=== PATIENT | male | born 1945 | race Caucasian/White ===

== ENCOUNTER → 2017-11-06 | Outpatient (CLI) | END | disposition home or self-care (01) ==

== ENCOUNTER → 2018-05-25 | Outpatient (CLI) | END | disposition home or self-care (01) ==

== ENCOUNTER → 2019-03-11 | Outpatient (CLI) | payer MEDICARE, OTHER ==
[~2019-03-11] MED LIST: LOSA100T3; METF500T24; VICES
--- NOTE | 2019-03-11 16:53 | CONS ---
Assessment/Plan Assessment/Plan Hospital Course (Demo Recall) 73-year-old male with acute pain to his right TKA times 1 day and chronic pain of his left knee secondary to osteoarthritis most significantly affecting his lateral compartment. In regards to his right total knee arthroplasty there is no signs of x-ray of fracture or loosening of the implant. X-rays look very good. His examination shows that the knee is stable. He is tender to palpation over the patella tendon which is likely tendinitis from the injury versus a small partial tear of the patella tendon. His left knee osteoarthritis is beginning to bother him again. Previous steroid injections were very successful. Patient would like another one. Plan: Rest and ice right knee. After 2 weeks of resting he will start physical therapy for strengthening and to optimize knee mechanics. Steroid injection left knee Follow-up 6 weeks to reevaluate right knee patella tendinitis. Assessment/Plan (Daily) Left knee steroid injection procedure: Risks and benefits of steroid injection reviewed with patient. The risks include infection, failure, pain, swelling, nerve/tendon/ligament damage. The patient verbalized understanding and verbal consent was obtained prior to procedure. The left knee was prepped in a sterile fashion with alcohol and betadine the site of injection was confirmed. Lateral approach was used. The skin and capsule was anesthetized with 3mL 1% lidocaine. The left knee was injected with 2mL 1% lidocaine, 2mL 0.25% bupivacaine, 40mg Depo-Medrol. Injection flowed freely. Good hemostasis was achieved and no complications noted. The patient tolerated the procedure well. Limit activity and ice for 24-48 hours Consultation Date/Type/Reason Admit Date/Time Date of Consultation: Mar 11, 2019 Reason for Consultation Acute right TKA pain and chronic left knee pain Date/Time of Note DATE: 03/11/19 TIME: 16:35 Hx of Present Illness This is a 73-year-old male previous patient of Dr. Santiago. 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 He had no complaints or any issues with his right total knee until last night. His left knee pain has been going on for several years. He has had multiple steroid injections with much success. Last steroid injection was May 2018 and it was helping until this past month. His pain on his right TKA began last night when he was walking to the bathroom and his knee buckled. He did not fall he did catch himself. He now has significant anterior knee pain rated 10/10 and is sharp. The pain is exacerbated with walking however rising from a seated position is most painful. Denies any weakness. Denies any numbness and tingling. Denies any swelling to the right total knee. Terms of the left knee the left knee pain is on the lateral aspect and is rated 5/10 and is sharp. Denies any numbness and tingling in left lower extremity. He is walking tolerance was 2-3 miles prior to last night. Now he has severe pain and is using a cane and can even walk 1 block. Patient denies fever, chills, shortness of breath, chest pain, nausea/vomiting, constipation, diarrhea, numbness, and tingling. Past Medical History Hypertension Diabetes type 2 Benign hypertrophy of the prostate Home Meds Reported Medications Acetaminophen/Hydrocodone (Vicodin Es) 1 Tab Tab 03/01/11 Metformin Hcl* (Metformin Hcl*) 500 Mg Tablet 03/01/11 Losartan Potassium* (Cozaar*) 100 Mg Tablet 03/01/11 Allergies: Coded Allergies: No Known Drug Allergy (Verified Allergy, Unknown, 03/01/11) Past Surgical History Right total knee arthroplasty 2010 Jack Right knee total arthroplasty manipulation under anesthesia 2010 Dr. Santiago Carotid artery 2016 Right shoulder 2018 Family History Significant Family History: no pertinent family hx Social History Alcohol Use: none Smoking Status: Former smoker Drug Use: none Exam/Review of Systems Exam Vitals Weight: 205 pound Height: 5 foot 9 inches Heart Rate: 80 (first measurement). 94(second measurement) Blood Pressure: 194/78(first measurement). 170/73 (second management) Exam General: Alert, oriented x3. No Acute Distress. Heart: Regular rate and rhythm. Lungs: No respiratory distress. No accessory muscle use. Musculoskeletal: Left and right knee This is a well developed male who is alert, oriented times three and in no apparent distress. Skin is intact over the left knee as well as the lower extremity with no abrasions, lacerations, or ulcerations. Well-healed anterior midline incision on the right knee. No erythema. No effusion. Observation of the patient's gait reveals an antalgic gait with No thrust. Frontal plane alignment is slight valgus on the left, neutral on the right. There is pain to palpation over the patella tendon on the right TKA. On the left knee There is pain on palpation of lateral joint line. The patient demonstrates grinding anteriorly with ROM on the left. Range of motion: 0 extension to approximately 120 degrees of flexion bilaterally. Collateral ligament testing reveals no instability with varus or valgus stress at 0 and 30 degrees of flexion. Negative Edita's and negative posterior drawer. Patient able to perform right straight leg raise and extend knee fully without any lag or pain. Neurovascularly intact with 5/5 EHL/tibialis anterior/gastroc. Sensation intact to light touch in a sural, saphenous, deep peroneal, superficial peroneal, medial and lateral plantar nerve distribution. Palpable, symmetric dorsalis pedis and posterior tibial pulses in both lower extremities. Hip examination normal. Imaging Imaging The patient received a standard set of films today that were personally reviewed. Imaging included a standing bilateral knee AP, PA flexion, merchant views and a dedicated lateral of the affected knee: There is valgus alignment of the knee. There is complete loss of joint space lateral compartment(s) and moderate loss in medial patellofemoral compartment. There is osteophyte formation. There is subchondral sclerosis. There are subchondral cysts. Degenerative changes are most severe in the lateral compartment(s) Xrays obtained in clinic today and personally reviewed by myself: Bilateral AP and merchant views and a dedicated lateral of the right knee demonstrates right knee s/p TKA. Components in good position and alignment. No signs of wear, osteolysis, loosening, component failure, or fracture. No acute complications. CARLOS ALBERTO CUI MD Mar 11, 2019 16:46
--- NOTE | 2019-03-12 07:24 | RADRPT ---
PROCEDURE: XR Knee. CLINICAL INDICATION: PAIN TECHNIQUE: 4 views of the bilateral knees obtained. The images reviewed on a PACS workstation. COMPARISON: [facility] 11/06/2017; [facility] 05/31/2015 FINDINGS: Right: Total arthroplasty appears intact. No periprosthetic fracture. Moderate sized joint effusion. Left knee moderate to advanced tricompartmental arthrosis with joint space narrowing most pronounced at the lateral compartment, and marginal osteophyte formation. Small joint effusion. IMPRESSION: Right knee total arthroplasty appears intact. Left knee moderate to advanced osteoarthritis. Degenerative changes appear similar compared to prior exam. Right knee moderate joint effusion and left knee small joint effusion. RPTAT:AAJJ Physician Saige Date Time Electronically viewed and signed by Meme Landry Physician on 03/12/2019 07:24 RF/
== END | disposition home or self-care (01) ==
LOC: HKI 15:15
PROVIDERS: ATTEND Orthopaedic Surgery Adult Reconstructive Orthopaedic Surgery
DX: M17.12 Unilateral primary osteoarthritis, left knee (principal); M76.51 Patellar tendinitis, right knee; Z96.651 Presence of right artificial knee joint; Z87.891 Personal history of nicotine dependence
CPT/HCPCS: 20610; 73564; G0463